=== PATIENT | male | born 1995 | race Caucasian/White ===

== ENCOUNTER 2017-12-28 06:15 | Emergency (ER) | payer SELFPAY ==
[~2017-12-28] VITALS: Ht 180.3 cm; Wt 110.2 kg
--- NOTE | 2017-12-28 06:19 | NUR ---
Estella warner in [facility] - 12/28/17 at 0620 by YESSY JULIAN AND EVELYN AT BEDSIDE
[2017-12-28 06:21] VITALS: BP 131/85
--- NOTE | 2017-12-28 07:27 | NUR ---
PT LEFT W/OUT BEING SEEN BY ERMD. DR CLINE AWARE.
== END 2017-12-28 07:30 | disposition left against medical advice (07) ==
LOC: ER 06:18
DX: Z53.21 Procedure and treatment not carried out due to patient leaving prior to being seen by health care provider (principal); R05 Cough
CPT/HCPCS: A4606; Z7610

== ENCOUNTER 2017-12-28 07:40 | Emergency (ER) | payer MEDICAID ==
[~2017-12-28] VITALS: Ht 180.3 cm; Wt 110.2 kg
[2017-12-28 07:52] VITALS: BP 116/79
--- NOTE | 2017-12-28 08:04 | NUR ---
PT TO RADIOLOGY FOR CHEST XRAY VIA WHEELCHAIR.
--- NOTE | 2017-12-28 08:14 | NUR ---
AT BEDSIDE FOR EVALUATION.
[2017-12-28] MEDS ORDERED: DEXAMETHASONE 1 MG TABLET PO ONE (08:30)
[2017-12-28] MEDS ORDERED: ALBUTEROL FS 2.5 MG/3 ML VIAL.NEB NEB ONE (08:30)
[2017-12-28] MEDS ORDERED: IPRATROPIUM NEB FS 0.5 MG/2.5 ML AMPUL.NEB NEB ONE (08:30)
[2017-12-28] MEDS ORDERED: CLARITHROMYCIN 500 MG TABLET PO ONE (08:30)
--- NOTE | 2017-12-28 08:38 | NUR ---
CALLED RT FOR A BREATHING TREATMENT.
[2017-12-28] MEDS ORDERED: IPRATROPIUM NEB FS 0.5 MG/2.5 ML AMPUL.NEB ONE (08:46)
[2017-12-28] MEDS ORDERED: ALBUTEROL FS 2.5 MG/3 ML VIAL.NEB ONE (08:46)
[2017-12-28] MEDS ORDERED: DEXAMETHASONE 4 MG TABLET ONE (08:51)
[2017-12-28] MEDS ORDERED: DEXAMETHASONE 1 MG TABLET ONE (08:51)
== END 2017-12-28 09:14 | disposition home or self-care (01) ==
LOC: ER 07:42
DX: J20.9 Acute bronchitis, unspecified (principal); J45.909 Unspecified asthma, uncomplicated; F17.210 Nicotine dependence, cigarettes, uncomplicated; Z88.1 Allergy status to other antibiotic agents
CPT/HCPCS: 71046; 94640; 99284; A4606; J8540 ×2; Z7610